=== PATIENT | female | born 1995 | race Caucasian/White ===

== ENCOUNTER 2016-05-22 21:17 | Observation (INO) ==
[2016-05-22 21:44] LABS: Bilirubin,Urine Negative (Negative); Blood,Urine Negative (Negative); Color,Urine Yellow (Yellow); Glucose,Urine (UA) Normal (Normal); Ketones,Urine Trace mg/dL (Negative); Leukocyte Esterase,Urine Negative (Negative); Nitrite,Urine Negative (Negative); PH,Urine 6.5 pH Units (5.0-8.0); Protein,Urine Negative (Neg-Trace); Specific Gravity,Urine 1.023 (1.010-1.025); Urobilinogen,Urine Normal (Normal)
[2016-05-22 22:00] VITALS: BP 126/73
[2016-05-22 22:01] LABS: Clarity,Urine Clear (Clear)
--- NOTE | 2016-05-22 22:56 | OB/GYN Progress Note ---
Date of Encounter: 05/22/16 Time of Encounter: 22:53 - Assessment and Plan (1) 24 weeks gestation of Current Visit: Yes Status: Acute (2) Brittany vaginitis Current Visit: Yes Status: Acute Yeast noted on SSE. Will treat with terazol cream. (3) uterine contractions in second trimester, antepartum Current Visit: Yes Status: Acute FFN collected. Will await FFN result. If positive will order cervical length US. UA with ketones. Pt currently hydrating. Subjective - Subjective Interval history: 21 year-old presenting at 24 weeks gestation with c/o cramping in lower back since 7pm today. She also reports sharp pain in her left lower abdomen that has now resolved and white vaginal discharge for the last few days. Good FM. No other complaints. Antepartum ROS: movement normal, contractions (pt reports cramping in lower back), no loss of fluid, no vaginal bleeding Objective - Vital Signs Vital Signs: Vital Signs Temp Pulse Resp BP 05/22/16 21:45 98.6 F 78 16 126/73 Intake and Output 05/22/16 05/22/16 05/22/16 07:59 15:59 23:59 Other: Weight 54 kg Patient Weight 05/22/16 23:59 Weight 54 kg - Exam FHR: auscultation normal FHR comments: FHT reassuring for GA. Abdomen: Present: soft, gravid. Absent: tenderness Uterus: Present: normal. Absent: tenderness Cervical dilation: fingertip station: high, cervix posterior Comments: SSE with thin white discharge. FFN collected. Wet prep negative clue cells, positive yeast Fern negative. - Labs Labs: Abnormal lab results Urine Ketones Trace mg/dL (Negative) H 05/22/16 21:30
== END 2016-05-23 02:49 | disposition home or self-care (01) ==
LOC: 1NENULAB
PROVIDERS: ADMIT Obstetrics & Gynecology; ATTEND Obstetrics & Gynecology

== ENCOUNTER 2016-08-06 21:59 | Observation (INO) ==
[2016-08-06 22:50] LABS: Bilirubin,Urine Negative (Negative); Blood,Urine Negative (Negative); Clarity,Urine Cloudy (Clear); Color,Urine Yellow (Yellow); Glucose,Urine (UA) Normal (Normal); Ketones,Urine Negative (Negative); Leukocyte Esterase,Urine Negative (Negative); Nitrite,Urine Negative (Negative); Protein,Urine Negative (Neg-Trace); Specific Gravity,Urine 1.015 (1.010-1.025); Urobilinogen,Urine Normal (Normal)
[2016-08-06 22:52] LABS: Bacteria,Urine None Seen per hpf (None-Few); Hyaline Casts,Urine None Seen per lpf (None-Few); RBC,Urine 0-3 per hpf (0-3); Squamous Epithelial Cell,Urine Many per lpf (None-Few); WBC,Urine 0-3 per hpf (0-3)
--- NOTE | 2016-08-11 08:29 | Event Note ---
Date of Encounter: 08/06/16 Time of Encounter: 23:00 Patient arrived in triage for labor evaluation. Serial exams completed by RN - no change in cervix. NST reactive per RN. Order given to discharge home with labor precautions and kick counts.
== END 2016-08-07 09:33 | disposition home or self-care (01) ==
LOC: 1NENULAB
PROVIDERS: ADMIT Obstetrics & Gynecology; ATTEND Obstetrics & Gynecology

== ENCOUNTER 2016-08-25 00:33 | Observation (INO) ==
--- NOTE | 2016-08-25 03:39 | OB/GYN Progress Note ---
Date of Encounter: 08/25/16 Time of Encounter: 03:34 - Assessment and Plan (1) False labor Status: Acute Inital vaginal exams show no change from office exam. Pt assessed for over an hour with irregular contractions. No cervical change. Discharged to home with labor precautions and when to call provider and return to triage by RN (2) NST (non-stress test) reactive Status: Acute baseline 135 Subjective - Subjective Interval history: pt reports contractions all evening, now 2 minutes apart requiring the patient to breathe through contractions. Reports good movement, denies vaginal bleeding or leaking of fluid. Antepartum ROS: movement normal, contractions, no loss of fluid, no vaginal bleeding Objective - Vital Signs Vital Signs: Intake and Output 08/24/16 08/24/16 08/25/16 15:59 23:59 07:59 Other: Weight 65.771 kg Patient Weight 08/25/16 23:59 Weight 65.771 kg - Exam FHR: auscultation normal, category 1 FHR comments: baseline 135 Auscultation: bilateral: normal Abdomen: Present: normal appearance, soft Uterus: Present: normal Cervical dilation: 1/per RN
== END 2016-08-25 02:36 | disposition home or self-care (01) ==
LOC: 1NENULAB
PROVIDERS: ADMIT Obstetrics & Gynecology; ATTEND Obstetrics & Gynecology

== ENCOUNTER 2016-08-30 08:12 | Inpatient (IN) ==
[2016-08-30] MEDS ORDERED: Ondansetron 4 MG/2 ML VIAL IVP PRN (08:46)
[2016-08-30] MEDS ORDERED: Metoclopramide 10 MG/2 ML VIAL IVP PRN (08:46)
[2016-08-30] MEDS ORDERED: Naloxone 0.4 MG/ML INJ IVP PRN (08:46)
[2016-08-30] MEDS ORDERED: Famotidine 20 MG/2 ML VIAL IVP PRN (08:46)
[2016-08-30] MEDS ORDERED: Ringers Solution, Lactated 1,000 ML ONE (08:49)
[2016-08-30] MEDS: Ringers Solution, Lactated 1,000 ML IVC SCH ×3 (08:56→13:32)
[2016-08-30] MEDS ORDERED: *HR* Nalbuphine 20 MG/ML AMPUL IVP PRN (08:58)
[2016-08-30 09:01] LABS: Basophils % 0.4 %; Eosinophils % 0.3 %; Hematocrit 38.2 % (35.3-44.9); Hemoglobin 12.8 g/dL (11.5-15.4); Immature Granulocytes % 0.5 % (0-4); Immature Platelets 13.1 % (1.1-6.1); Lymphocytes # 1.6 K/mcL (0.6-4.6); Lymphocytes % 15.9 %; Mean Corpuscular HGB Conc 33.5 g/dL (31.6-35.5); Mean Corpuscular Hemoglobin 29.4 pg (28.0-33.3); Mean Corpuscular Volume 87.8 fL (83.0-100.0); Mean Platelet Volume 11.3 fL (9.4-12.4); Monocytes # 0.7 K/mcL (0.0-1.3); Monocytes % 6.3 %; Neutrophils # 7.9 K/mcL (1.6-8.9); Platelet Count 162 K/mcL (140-400); Red Blood Count 4.35 M/mcL (3.82-4.97); Red Cell Distribution Width 13.1 % (11.5-14.5); Segmented Neutrophils % 76.6 %
--- NOTE | 2016-08-30 09:23 | OB/GYN History & Physical ---
Date of Encounter: 08/30/16 Time of Encounter: 09:18 Assessment and Plan (1) 39 weeks gestation of Current visit: Yes Status: Acute (2) Uterine contractions Current visit: Yes Status: Acute admit to labor and delivery Nubain and Epidural if desired Anticipate History of Present Illness HPI: Ms. Martel is a 21 year old female 39+1 weeks gestation presents with contractions since last night getting stronger this morning. Reports good movement, denies vaginal bleeding or leaking of fluid. No complications during . Labs: O+, GBS -, Rubella and varicella immune, all other serologies negative Past Med Surg Social Fam HX - Past Medical History Medical history: no medical history Psychiatric history: no psych history - Past Surgical History Surgical History: other - Social History Smoking Status: Never smoker Smokeless Tobacco Status: No Alcohol use: none Drug use: none - Family History Mother Adopted: No Living Status: Still Living Hx Family Cardiac Disorders: No Hx Family Respiratory Disorders: No Hx Family Cancer: Yes (luekemia at age 17) Hx Family GI Disorders: No Hx Family Endocrine Disorder: No Hx Family Neuromuscular Disorders: No Hx Family Neurologic Disorders: No Hx Family HEENT Disorders: No Hx Family Autoimmune Disorders: No Obstetrical History - Pregnancies : 1 Para: 0 Term: 0 : 0 Ab's: 0 Livin Medications and Allergies Pnv95/Iron Fum/Folic Acid [ Caplet] 1 each PO DAILY 01/02/16 [History] Allergies No Known Allergies Allergy (Verified 02/03/16 16:39) Exam - Constitutional Constitutional: well developed, well nourished, no acute distress, average body habitus - Neck Neck exam: full ROM - Lungs Respiratory exam: CTAB - Cardiovascular Cardiovascular exam: RRR, +S1, +S2 - Abdomen Abdomen: Present: bowel sounds normal, gravid, non tender - Vulva Vulva: bilateral: normal - Vagina Vagina: Present: normal moisture - Cervix Dilation: 4 Effacement: 90 Station: -1 - Uterus Uterus exam: Present: normal size, normal contour - Anus/Rectum Anus/Rectum: Present: normal perianal skin Results Result Diagrams: 08/30/16 08:45 Abnormal lab results Immature Plt Fraction 13.1 % (1.1-6.1) H 08/30/16 08:45 All other labs normal. - VTE Reasons for not Prescribing Prophylaxis: Treatment not Indicated - Low risk for VTE
[2016-08-30] MEDS ORDERED: *HR* FentaNYL (PF) 100 MCG/2 ML VIAL ONE ×2 (09:49→21:32)
[2016-08-30] MEDS ORDERED: Bupivacaine-MPF 0.25% 10 ML VIAL ONE (09:49)
[2016-08-30] MEDS ORDERED: Epidural Premix (fent/bupiv) 110 ML EP ONE ×3 (09:49→20:18)
--- NOTE | 2016-08-30 10:08 | Anesthesia Evaluation PreOp ---
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: Denies Any Significant HX Other Medical History: Denies Any Significant HX Anesthesia History: No Prior Anesthetic Complications (never had any procedure requiring NA; denies personal or family h/o GA complications) : Yes Test: Positive Alcohol Use: none Drug use: none Medications and Allergies Pnv95/Iron Fum/Folic Acid [ Caplet] 1 each PO DAILY 01/02/16 [History] Allergies No Known Allergies Allergy (Verified 02/03/16 16:39) - Meds/Allergy Pre-op Review Medications Reviewed: Yes Allergies Reviewed: Yes Beta Blockers on Current Med List: No Anesthesia Results - Labs 08/30/16 08:45 Anesthesia Exam 142/96, HR82, RR15 Height: 1.73m Weight: 66kg NPO (# of Hours): solids > 6hrs Pain Scale: 7 Pain Scale Used: Numeric (1 - 10) - HEENT Pupil (Motor): Pupils equal Mallampati: II Teeth: Normal Oral Opening: Greater than 3 - HOLE DIGGER OPERATOR LOC: Oriented HOLE DIGGER OPERATOR Motor: Normal RUE, Normal LUE, Normal RLE, Normal LLE, Normal Face HOLE DIGGER OPERATOR Sensory: Normal: RUE, LUE, RLE, LLE, Face - Cardiac Rhythm: Regular Murmur: None JVD: No Carotid Bruit: No - Pulmonary Breath Sounds: bilateral Clear Respiratory Effort: Symmetrical Anesthesia Assess/Plan ASA Score: 2 Modified [place] Scale for Level of Consciousness: Anixous, agitated or restless Anesthetic Plan: Regional Autologous Blood: No Monitoring Plan: Standard Monitors Recovery Plan: Other
[2016-08-30] MEDS ORDERED: *HR* FentaNYL (PF) 100 MCG/2 ML VIAL EP ONE (10:09)
[2016-08-30] MEDS ORDERED: Bupivacaine-MPF 0.25% 10 ML VIAL EP ONE (10:09)
[2016-08-30] MEDS ORDERED: Epidural Premix (fent/bupiv) 110 ML EP SCH (10:15)
--- NOTE | 2016-08-30 11:28 | Anesthesia Procedures ---
Date of Encounter: 08/30/16 Time of Encounter: 11:26 Procedures: Anesthesia - Epidural/Spinal Patient ID/Chart reviewed: Yes Patient examined: Yes OB Eval: Gestational age: 39 weeks 1 day OB Eval: : 1 OB Eval: Hx Para: 0 OB Eval: Dilated at (cm): 4 OB Eval: Contractions: Non-stressed pattern Consent Obtained: Yes Supplemental Oxygen: None/Room Air Site Prep: Aseptic Technique, Sterile prep and drape, Povidone-Iodine 1% Patient position: upright Local Anesthetic: Lidocaine 1% Amount of Local Anesthetic used: 3 Touhy Needle Gauge: 18 Touhy Needle Depth (cm): 4 Catheter Depth at Skin (cm): 9 Test Dose (1.5% Lido + Epi): Volume given (mls): 5 Test Dose Result: Negative Loading Dose: 0.25% Marcaine (mls): 5 Loading Dose: Fentanyl (mcg): 100 Loading Dose Administered: Thru Catheter Infusion Med: 0.125% Bupivacaine w/ 2 mcg/ml Fentanyl Infusion Rate (mls/hr): 14 (w/ demand bolus of 4mL q20min PRN) Catheter Secured in Place: Tegaderm, Tape Interspace Used: L4-L5 Loss of Resistance ([place]): Yes Blood: No CSF: No Paresthesia: Yes (R hip, transient) Vitals + FHT's: please see Tati QUIGLEY's documentation
[2016-08-30] MEDS ORDERED: Oxytocin 20 units/ LR 1000 mL 20 UNIT/1,000 ML BAG IVC SCH (16:27)
--- NOTE | 2016-08-30 17:45 | OB Labor Progress Note ---
Date of Encounter: 08/30/16 Time of Encounter: 17:41 Labor Progress Note - Subjective Subjective: Pt resting comfortable in bed with epidural - Cervix Cervix: 5-6 per RN - Heart Tones Heart Tones: 150/moderate/accels/no decels Cat I - Interventions Interventions: Due to minimal cervical change pitocin started. - Plan Plan: Continue pitocin per policy Anticipate
--- NOTE | 2016-08-30 19:48 | Anesthesia Progress Note ---
Date of Encounter: 08/30/16 Time of Encounter: 19:46 Anesthesia Note - Note Note: Called to patient bedside to evaluate breakthrough labor pain. Pt describes pain as 8/10 and located primarily on L side of abdomen. Patient positioned to LLD position and 10mL of 0.125% bupivicaine administered through epidural catheter. VSS. Pt reports improvement in pain score. 08/30/16 19:46
[2016-08-30] MEDS ORDERED: *HR* Ropivacaine/PF 0.2% 10 ML AMPUL ONE (21:32)
--- NOTE | 2016-08-30 21:42 | Anesthesia Progress Note ---
Date of Encounter: 08/30/16 Time of Encounter: 21:40 Anesthesia Note - Note Note: Called to patient bedside to evaluate breakthrough labor pain. Noticed small amount of fluid accumulating under tegaderm dressing. Catheter still taped at 9cm justin so withdrawn to 8cm justin. 10mL of NS administered through catheter and only a scant amount of fluid leaking out around catheter. Patient last cervical exam 9cm so decision made to just re-bolus through existing catheter with 10mL of 0.2% ropivicaine and 100mcg fentanyl. Patient reports slight improvement in pain level. 08/30/16 21:40
--- NOTE | 2016-08-30 21:59 | OB Labor Progress Note ---
Date of Encounter: 08/30/16 Time of Encounter: 09:30 Labor Progress Note - Subjective Subjective: Pt resting comfortable in bed at this time. - Cervix Cervix: 9/100/0 - Heart Tones Heart Tones: 145/moderate/+accels/early CAT I - Interventions Interventions: Continue pitocin per policy Frequent repositioning peanut ball Anticipate - Plan Plan: Continue pitocin per policy peanut ball. frequent positioning anticipate
[2016-08-30] MEDS ORDERED: Lidocaine 1% 20 ML MDV ONE (22:53)
[2016-08-31] MEDS ORDERED: Acetaminophen 325 MG TABLET PO ONE (00:32)
[2016-08-31] MEDS ORDERED: Ampicillin 2 GM in 0.9 % Sodium Chloride Mini Bag 100 ML IVPB ONE (00:43)
--- NOTE | 2016-08-31 01:14 | OB Labor Progress Note ---
Date of Encounter: 08/31/16 Time of Encounter: 01:12 Labor Progress Note - Subjective Subjective: Pt complaining of increased pain on left side. Anesthesia to bolus epidural. - Vital Signs Vital Signs: Temp 100.4 - Cervix Cervix: Complete +1 - Heart Tones Heart Tones: 160/moderate/+accels/ - [place]: 2-4 - Interventions Interventions: Pt febrile with heart rate at 160. Tylenol and Ampicillin ordered. Discussed with Dr. Espinal. - Plan Plan: Continue pitocin per policy Start pushing plan of care discussed with Dr. Espinal Anticipate
--- NOTE | 2016-08-31 03:01 | OB Labor Progress Note ---
Date of Encounter: 08/31/16 Time of Encounter: 02:58 Labor Progress Note - Subjective Subjective: Called by CNM to assist with right labial tear. Right labia minora with 2.5 cm laceration at base not extending to top. This laceration was repaired with multiple interupted sutures with 3-0 vicryl medially and laterally. Pt tolerated well with minimal bleeding. I also observed 2nd degree laceration repaired with 3-0 Vicryl. Pt tolerated well.
--- NOTE | 2016-08-31 03:03 | OB/GYN Procedure Note ---
Delivery - Delivery Date: 08/31/16 Provider: Fina Jerome (Teddy (repair)) Intrapartum events: febrile- temp >100.3 Delivery augmentation: rupture of membranes, pitocin Delivery monitor: external FHT, external uterine Anesthesia: epidural Estimated Blood Loss: 150 - Infant (s) Infant A Delivery Date: 08/31/16 Infant Delivery Time: 02:20 Presentation: vertex Position: OA Route of delivery: Gender: Female Viability: Viable Pounds: 7 Ounces: 7 Weight Gram: 3360 kg at 1 minute: 8 at 5 mins: 9 Shoulder Dystocia: not encountered Specimens collected: cord blood Placenta: spontaneous Cord: 3 umbilical vessels - Repair Episiotomy: none Laceration Description: Perineal - 2nd Degree, Labial (Right labial repair ) - Complications Delivery complications: none Delivery comments: Directed maternal bearing down efforts to of liveborn female. Vertex delivered OA, Shoulders easily followed, no nuchal cord or shoulder dystocia encountered. Vigorous infant placed on maternal abdomen. APGARS 8/9. Placenta delivered spontaneously (shira and intact), Fundus firm, pitocin per policy EBL 150. second degree perineal laceration repaired by CNM. Labial laceration repaired by Dr. Espinal as it exteneded though the entire labia. - Disposition Mom disposition: stable in LDR [place] disposition: stable in LDR
[2016-08-31] MEDS ORDERED: Benzocaine/Menthol 56 GM AEROSOL SPRAY TP PRN (05:32)
[2016-08-31] MEDS ORDERED: Lanolin 7 G OINT...G. TP PRN (05:32)
[2016-08-31] MEDS ORDERED: Oxytocin 20 units/ LR 1000 mL 20 UNIT/1,000 ML BAG IVC SCH (05:32)
[2016-08-31] MEDS ORDERED: *HR* HYDROcodone/Acet 5/325 mg TABLET PO PRN (05:32)
[2016-08-31] MEDS ORDERED: Acetaminophen 325 MG TABLET PO PRN (05:32)
[2016-08-31] MEDS: Ibuprofen 600 MG TABLET PO PRN ×3 (05:46→19:46)
[2016-08-31] MEDS: Prenatal Vit/FA 1 EACH TABLET PO SCH (09:00)
--- NOTE | 2016-09-01 08:32 | Discharge Summary ---
Date of Encounter: 09/01/16 Time of Encounter: 08:30 - Discharge Diagnosis (1) Vaginal delivery Priority: Primary Status: Acute Comments: Continue routine care discharge home today follow up in 4-6 weeks with CNM (2) Breast feeding status of mother Priority: Secondary Status: Acute Comments: support prn - Discharge Medications Prescriptions: Ibuprofen [Motrin] 600 mg PO Q6HR PRN #60 tablet PRN Reason: Cramping Breast Pump [BREAST PUMP] 1 each .ROUTE AD #1 each Home Medications: Pnv95/Iron Fum/Folic Acid [ Caplet] 1 each PO DAILY 01/02/16 [History] Breast Pump [BREAST PUMP] 1 each .ROUTE AD #1 each 09/01/16 [Rx] Ibuprofen [Motrin] 600 mg PO Q6HR PRN #60 tablet 09/01/16 [Rx] Vit/FA 1 each PO DAILY tablet 09/01/16 [Rx] Allergies/Adverse Reactions: Allergies No Known Allergies Allergy (Verified 02/03/16 16:39) Data Procedures and tests throughout hospitalization: Laboratory Tests 08/30/16 08:45 WBC 10.3 RBC 4.35 Hgb 12.8 Hct 38.2 MCV 87.8 MCH 29.4 MCHC 33.5 RDW 13.1 Plt Count 162 MPV 11.3 Immature Gran % 0.5 Seg Neutrophils % 76.6 Lymphocytes % 15.9 Monocytes % 6.3 Eosinophils % 0.3 Basophils % 0.4 Neutrophils # 7.9 Lymphocytes # 1.6 Monocytes # 0.7 Eosinophils # 0.0 Basophils # 0.0 Immature Plt Fraction 13.1 H Date of admission: 08/30/16 08:12 Primary care physician: PCP NO Consults: 08/31/16 05:32 Consult to Salon Coordinator [CONS] Routine Comment: Vaginal delivery, consult needed Discharging clinician: Sonam Hussein Anticipated date of discharge: 09/01/16 - Patient Status Disposition: Home, Self-Care Condition: Good Functional capacity at discharge: independent ambulation - Discharge Instructions Follow Up With: BRADLEY,PCP [Primary Care Provider] - Fina Jerome CNM [Advanced Practice Nurse] - - Diet and Activity Activity: increase activity as tolerated Diet: regular diet Hospital Course Reason for admission: active labor Delivery: Episiotomy: none Laceration: other (labial) Other procedures: none complications: none Discharge diagnosis: IUP at term delivered baby: female (breast feeding) Time Attestation: Total time spent providing and/or coordinating discharge services: Time Spent: Less than 30 minutes Exam - Constitutional Vitals: Temp Pulse Resp BP Pulse Ox 98.6 F 75 16 127/76 97 08/31/16 21:00 08/31/16 21:00 08/31/16 21:00 08/31/16 21:00 08/31/16 21:00 General appearance IM: A&O X 3, pleasant, answers questions appropriately - Respiratory Respiratory exam: Present: CTAB - Cardiovascular Cardiovascular exam IM: Present: RRR, +S1, +S2 - GI/Abdominal GI/Abdominal exam IM: normal bowel sounds - Uterine Tone: Firm Uterus Position: 2 Fingers Below Umbilicus, Midline - Extremities Exam Extremities exam IM: Present: full ROM, normal capillary refill, normal inspection - Neurological Exam Neurological exam: alert, oriented X3, reflexes normal
[2016-09-01] MEDS: Ibuprofen 600 MG TABLET PO PRN (08:57)
[2016-09-01] MEDS: Prenatal Vit/FA 1 EACH TABLET PO SCH (08:57)
[2016-09-01 10:18] VITALS: BP 123/81
== END 2016-09-01 12:42 | disposition home or self-care (01) | DRG 560 ==
LOC: 1NENULAB → OBSVTOIN 08:12 → 1NENUOBS 08-31 05:16
PROVIDERS: ADMIT Obstetrics & Gynecology; ATTEND Obstetrics & Gynecology

== ENCOUNTER → 2016-09-07 00:12 | Observation (INO) ==
[2016-09-06 23:33] VITALS: BP 123/72
--- NOTE | 2016-09-06 23:42 | Discharge Summary ---
Date of Encounter: 09/06/16 Time of Encounter: 00:09 - Discharge Diagnosis (1) Dehiscence of laceration repair Priority: Primary Status: Acute Comments: Patient arrives to triage with c/o laceration repair opening. She states that when she was cleaning herself after using the bathroom this evening she noticed that her laceration repair on her right labia had opened. She also notes that she has an odorous discharge. Upon inspection the repair has dehisced with a yellow/green discharge with an odor. Dr Alejo was consulted. He recommended Bactrim DS x 10 days and follow up with him on Monday. Qualifiers: Encounter type: initial encounter Qualified Code(s): T81.33XA - Disruption of traumatic injury wound repair, initial encounter (2) depression Priority: Primary Status: Acute Comments: Patient states that she has been extremely tearful since delivery and cannot force herself to eat. She states she does not have thoughts of hurting herself , the baby or others. She has no primary care provider at this time to follow up with. We will refer her to the resident clinic for primary care follow up in 6 weeks. - Discharge Medications Prescriptions: Sertraline [Zoloft] 25 mg PO DAILY #30 tablet Sulfamethoxazole/Trimeth DS [Bactrim DS] 1 each PO DAILY #10 tablet Home Medications: Breast Pump [BREAST PUMP] 1 each .ROUTE AD #1 each 09/01/16 [Rx] Ibuprofen [Motrin] 600 mg PO Q6HR PRN #60 tablet 09/01/16 [Rx] Vit/FA 1 each PO DAILY tablet 09/01/16 [Rx] Sertraline [Zoloft] 25 mg PO DAILY #30 tablet 09/07/16 [Rx] Sulfamethoxazole/Trimeth DS [Bactrim DS] 1 each PO DAILY #10 tablet 09/07/16 [Rx ] Allergies/Adverse Reactions: Allergies No Known Allergies Allergy (Verified 02/03/16 16:39) Date of admission: 09/06/16 23:17 Discharging clinician: Huong Garcia Anticipated date of discharge: 09/07/16 - Patient Status Disposition: Home, Self-Care Condition: Good Functional capacity at discharge: independent ambulation Overall status at discharge: patient is progressing back to baseline - Discharge Instructions Follow Up With: Breanna Alejo MD [Partnered Physician] - (Monday; we will call with appointment) - Diet and Activity Activity: increase activity as tolerated 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 Time Attestation: Total time spent providing and/or coordinating discharge services: Time Spent: Less than 30 minutes Exam - Constitutional Vitals: Temp Pulse Resp BP 98.2 F 63 14 123/72 09/06/16 23:31 09/06/16 23:31 09/06/16 23:31 09/06/16 23:31 General appearance IM: cooperative, A&O X 3, pleasant - Respiratory Respiratory exam: Present: CTAB - Cardiovascular Cardiovascular exam IM: Present: RRR, +S1, +S2 - GI/Abdominal GI/Abdominal exam IM: normal bowel sounds, soft Incision: skin , other (yellow/henao/green odorous discharge) - Uterine Tone: Firm Uterus Position: 4 Fingers Below Umbilicus, Midline - Extremities Exam Extremities exam IM: Present: normal capillary refill, normal inspection, radial pulses palpable and symetrical - Neurological Exam Neurological exam: alert, oriented X3
== END | disposition home or self-care (01) ==
LOC: 1NENULAB
PROVIDERS: ADMIT Advanced Practice Midwife; ATTEND Advanced Practice Midwife

== ENCOUNTER 2019-10-24 19:00 | Observation (INO) ==
[2019-10-24 19:47] LABS: Bilirubin,Urine Negative (Negative); Blood,Urine Negative (Negative); Clarity,Urine Clear (Clear); Color,Urine Light-Yellow (Yellow); Glucose,Urine (UA) Normal (Normal); Ketones,Urine Negative (Negative); Leukocyte Esterase,Urine Negative (Negative); Nitrite,Urine Negative (Negative); Protein,Urine Trace mg/dL (Neg-Trace); Specific Gravity,Urine 1.029 (1.010-1.025); Urobilinogen,Urine Normal (Normal)
[2019-10-24 19:54] LABS: Basophils # 0.1 K/mcL (0.0-0.2); Basophils % 0.6 %; Eosinophils # 0.1 K/mcL (0.0-0.6); Eosinophils % 0.7 %; Hematocrit 49.9 % (35.3-44.9); Hemoglobin 16.4 g/dL (11.5-15.4); Immature Granulocytes % 0.3 % (0-4); Lymphocytes # 2.3 K/mcL (0.6-4.6); Lymphocytes % 21.1 %; Mean Corpuscular HGB Conc 32.9 g/dL (31.6-35.5); Mean Corpuscular Hemoglobin 28.3 pg (28.0-33.3); Mean Corpuscular Volume 86.2 fL (83.0-100.0); Mean Platelet Volume 10.3 fL (9.4-12.4); Monocytes # 0.7 K/mcL (0.0-1.3); Monocytes % 6.7 %; Neutrophils # 7.7 K/mcL (1.6-8.9); Platelet Count 346 K/mcL (140-400); Red Blood Count 5.79 M/mcL (3.82-4.97); Red Cell Distribution Width 13.3 % (11.5-14.5); Segmented Neutrophils % 70.6 %; White Blood Count 10.9 K/mcL (4.3-11.1)
[2019-10-24 20:19] LABS: BUN/Creatinine Ratio 11 (6-26); Blood Urea Nitrogen 11 mg/dL (6-20); Carbon Dioxide 22 mEq/L (23-29); Chloride 105 mEq/L (98-107); Glucose 148 mg/dL (70-105); Lipase 20 Units/L (11-82); Osmolality,Calculated 290 (280-300); Potassium 3.2 mEq/L (3.5-5.1); Sodium 139 mEq/L (136-145); eGFR For African Americans > 60 (> 60); eGFR For Non-African Americans > 60 (> 60)
[2019-10-24] MEDS ORDERED: 0.9 % Sodium Chloride 1,000 ML IVC ONE (20:38)
[2019-10-24] MEDS ORDERED: Ketorolac 30 MG/ML VIAL IVP ONE (20:38)
[2019-10-24] MEDS ORDERED: Isovue-370 500 ML BOTTLE IVP ONE (20:39)
[2019-10-24] MEDS ORDERED: Ondansetron 4 MG/2 ML VIAL IVP ONE (23:07)
[2019-10-25] MEDS ORDERED: Ondansetron 4 MG/2 ML VIAL IVP PRN ×2 (00:12→10:55)
[2019-10-25] MEDS ORDERED: 0.9 % Sodium Chloride 1,000 ML IVC SCH (00:15)
[2019-10-25] MEDS: Acetaminophen IV 1,000 MG/100 ML INFUS..BTL IVPB SCH ×2 (01:18→06:10)
[2019-10-25] MEDS: Piperacillin/Tazobactam 3.375 GM in 0.9 % Sodium Chloride Mini Bag 100 ML IVPB SCH ×2 (01:19→06:10)
[2019-10-25] MEDS ORDERED: *HR* FentaNYL (PF) 100 MCG/2 ML VIAL IVP PRN (07:07)
[2019-10-25] MEDS ORDERED: Naloxone 0.4 MG/ML INJ IVP PRN (07:07)
[2019-10-25] MEDS ORDERED: *HR* Propofol 200 MG/20 ML VIAL IVP ONE (07:12)
[2019-10-25] MEDS ORDERED: *HR* Midazolam HCl 2 MG/2 ML VIAL ONE (07:12)
[2019-10-25] MEDS ORDERED: Lidocaine -MPF 2% 2 ML VIAL ONE (07:14)
[2019-10-25] MEDS ORDERED: Dexamethasone 4 MG/ML VIAL ONE (07:17)
[2019-10-25] MEDS ORDERED: *HR* Rocuronium Bromide 50 MG/5 ML VIAL ONE (07:17)
[2019-10-25] MEDS ORDERED: *HR* Succinylcholine 200 MG/10 ML VIAL IVP ONE (07:17)
[2019-10-25] MEDS ORDERED: Ondansetron 4 MG/2 ML VIAL ONE ×2 (07:17→08:35)
[2019-10-25] MEDS ORDERED: Lidocaine -MPF 4% 5 ML AMPUL ONE (07:19)
[2019-10-25] MEDS ORDERED: Bupivacaine/EPI 1:200k 0.25%PF 30 ML VIAL ONE (07:19)
[2019-10-25] MEDS ORDERED: EPHEDrine 50 MG/ML VIAL ONE (08:14)
[2019-10-25] MEDS ORDERED: Ketorolac 30 MG/ML VIAL ONE (08:43)
[2019-10-25] MEDS: *HR* HYDROmorphone PF 0.5 MG/0.5 ML SYRINGE IVP PRN ×3 (09:28→10:11)
[2019-10-25] MEDS ORDERED: Acetaminophen IV 1,000 MG/100 ML INFUS..BTL IVPB SCH (12:00)
[2019-10-25] MEDS ORDERED: *HR* OxyCODONE/APAP 5/325 TABLET PO PRN (12:18)
[2019-10-25] MEDS ORDERED: Scopolamine Patch 1.5 MG PATCH.TD72 TD ONE (12:19)
[2019-10-25] MEDS ORDERED: Metoclopramide 10 MG/2 ML VIAL IVP ONE (12:19)
[2019-10-25 15:23] VITALS: BP 94/50
[2019-10-25] MEDS ORDERED: Ketorolac 15 MG/ML VIAL IVP SCH (18:00)
== END 2019-10-25 18:44 | disposition home or self-care (01) ==
LOC: 3ANU 19:00 → EMEROOARM 19:00 → 3ANU 10-25 00:03
PROVIDERS: ADMIT Surgery; ATTEND Surgery